=== PATIENT | female | born 1965 | race Caucasian/White ===

== ENCOUNTER → 2016-08-23 | Outpatient (CLI) | payer BC ==
--- NOTE | ~2016-08-23 | ECH ---
Transthoracic Echocardiography Report (TTE) Demographics Patient Name OLI MCRAE, Date of Study 08/23/2016 OLEGARIO Raymundo Patient Number [id number] Visit Number [id number] Date of 1965 Room Number Gender Female Number Age 50 year(s) Referring Regina Lewis Kennel Helper Anya Sosa [facility] Physician MD Faustino Motta MD Physician Interpreting Fermín Handley MD Pediatric Psychologist Physician Supervising Ordering Nadeem Ortega MD/Dominique Physician PAC Nurse Stress Media Reconciliation Specialist Conclusions Summary Limited echocardiogram for left ventricular function. Technically adequate exam. The estimated left ventricular ejection fraction is 55-60%. Procedure Type of Study TTE procedure:Echo Limited SF. Procedure Date Date: 08/23/2016 Start: 01:02 PM Technical Quality: Adequate visualization Indications:Pre-chemotherapy. Appropriate Use Criteria: 9 Height: 62 inches Weight: 145 pounds BSA: 1.67 m Rhythm: Within normal limits HR: 70 bpm BP: 102/65 mmHg M-Mode/2D Measurements LV Diastolic Dimension: 4.32 cm LV Systolic Dimension: 2.97 cm LV Septum Diastolic: 0.9 cm LV PW Diastolic: 0.98 cm AO Root Dimension: 2.49 cm LA Dimension: 3.48 cm RV Diastolic Dimension: 3.32 cm LA volume: 58.71 ml LA volume index: 35 ml/m RV Base: 2.8 cm RV Mid: 2.3 cm RV Length: 5.2 cm Doppler Measurements RA Area: 9.83 cm Findings Left Ventricle The left ventricle is normal in size . Right Ventricle Normal right ventricle structure and function. Left Atrium The left atrium is at upper limits of normal by LA volume index measurement. Right Atrium Normal right atrial size. Pericardial Effusion No evidence of pericardial effusion. Miscellaneous Visualized portions of the aortic root and ascending aorta appear normal in size. Pleural Effusion No evidence of pleural effusion. Signature
== END | disposition home or self-care (01) ==
LOC: CARD 12:47
DX: Z01.818 Encounter for other preprocedural examination (principal); C50.211 Malignant neoplasm of upper-inner quadrant of right female breast; Z17.0 Estrogen receptor positive status [ER+]